=== PATIENT | male | born 1950 | race Caucasian/White ===

== ENCOUNTER → 2021-01-21 | Outpatient (CLI) | payer MEDICARE ==
[~2021-01-21] MED LIST: AMARYL4 MG PO; BAYER CHEWABLE81 MG PO; CARVEDILOL25 MG PO; HUMALOG MI100 UNIT/1 SUBQ; HYDRALAZINE 2525 M1 PO; KLOR-CON 1010 MEQ PO; LASIX 40 MG TAB40 M2 PO; LOSARTAN POTAS100 MG PO; MOMETASONE FURO17 GM NASAL; MONTELUKAST SOD10 MG PO; NITROGLYCERIN0.4 MG SL; NORVASC5 MG PO; PERCOCET; PREDNISONE 20 M20 MG PO; SAVAYSA60 MG PO; TUSSIONEX PENN473 ML PO; VENTOLIN HFA 1818 GM INH; VITAMIN D31000 UNI2 PO; ZOCOR40 MG PO
== END ==
LOC: M.PC 09:50
PROVIDERS: ATTEND Physical Medicine & Rehabilitation
DX: M47.26 Other spondylosis with radiculopathy, lumbar region (principal); M48.061 Spinal stenosis, lumbar region without neurogenic claudication; M47.812 Spondylosis without myelopathy or radiculopathy, cervical region; M25.561 Pain in right knee; M25.562 Pain in left knee; M19.90 Unspecified osteoarthritis, unspecified site; M54.5 Low back pain

== ENCOUNTER → 2021-01-28 | Outpatient (CLI) | payer MEDICARE ==
[~2021-01-28] MED LIST changes: +APIDRA SUBQ; +COQ-1030 MG PO; +FLONASE 0.05%50 MCG NARES; +GLUCOPHAGE XR750 MG PO; +IMDUR 30 MG TAB30 M1 PO; +LANTUS SUBQ; +LIPITOR 20 MG T20 M1 PO; +SPIRONOLACTONE25 MG PO
== END | disposition home or self-care (01) ==
LOC: M.PC 08:55
PROVIDERS: ATTEND Physical Medicine & Rehabilitation
DX: M25.561 Pain in right knee (principal); M25.562 Pain in left knee; M17.0 Bilateral primary osteoarthritis of knee; M54.5 Low back pain; M54.2 Cervicalgia; M51.16 Intervertebral disc disorders with radiculopathy, lumbar region; M47.817 Spondylosis without myelopathy or radiculopathy, lumbosacral region; M48.061 Spinal stenosis, lumbar region without neurogenic claudication; Z98.890 Other specified postprocedural states; Z79.899 Other long term (current) drug therapy; Z88.8 Allergy status to other drugs, medicaments and biological substances